=== PATIENT | female | born 1985 | race Caucasian/White ===

== ENCOUNTER 2017-02-03 11:31 | Emergency (ER) | payer OTHER ==
[2017-02-03 11:45] VITALS: BMI 23.8
[2017-02-03 11:48] VITALS: O2SAT 100
[2017-02-03] MEDS ORDERED: Sodium Chloride 0.9% 1,000 ML IV ONE (12:16)
--- NOTE | 2017-02-03 12:25 | C.PDOC ---
History Of Present Illness 31 y/o female presents to the ED c/o right side abdominal pain for a week. The patient had a termination of four weeks ago. The patient denies headaches, dizziness, fever, chills, nausea, vomiting, and diarrhea. Time Seen by Provider: 02/03/17 12:08 Chief Complaint (Nursing): Abdominal Pain History Per: Patient Onset/Duration Of Symptoms: Days Current Symptoms Are (Timing): Still Present Location Of Pain/Discomfort: RLQ Radiation Of Pain To:: Back Abnormal Vaginal Bleeding: No Past Medical History Reviewed: Historical Data, Nursing Documentation, Vital Signs Vital Signs: Last Vital Signs Temp 97.8 F 02/03/17 15:35 Pulse 60 02/03/17 15:35 Resp 18 02/03/17 15:35 BP 97/61 L 02/03/17 15:35 Pulse Ox 100 02/03/17 16:06 - Medical History PMH: No Chronic Diseases Surgical History: No Surg Hx Family History: States: Unknown Family Hx - Social History Hx Alcohol Use: No Hx Substance Use: No - Immunization History Hx Tetanus Toxoid Vaccination: No Hx Influenza Vaccination: No Hx Pneumococcal Vaccination: No Review Of Systems Except As Marked, All Systems Reviewed And Found Negative. Constitutional: Negative for: Fever, Chills Cardiovascular: Negative for: Chest Pain Respiratory: Negative for: Cough, Shortness of Breath Gastrointestinal: Negative for: Nausea, Vomiting Skin: Negative for: Rash Physical Exam - Physical Exam Appears: Non-toxic Skin: Warm, Dry Head: Atraumatic, Normacephalic Oral Mucosa: Moist Neck: Supple Chest: Symmetrical Cardiovascular: Rhythm Regular Respiratory: Normal Breath Sounds, No Rales, No Rhonchi, No Wheezing Gastrointestinal/Abdominal: Soft, Tenderness (right lower quadrant ) Extremity: Normal ROM, Capillary Refill (<2sec.) Neurological/Psych: Oriented x3, Normal Speech, Normal Cognition Gait: Steady ED Course And Treatment - Laboratory Results Result Diagrams: 02/03/17 12:40 02/03/17 12:40 Lab Interpretation: Normal Urine POC: Negative O2 Sat by Pulse Oximetry: 100 (RA) Pulse Ox Interpretation: Normal - CT Scan/US No standard instances Other Rad Studies (CT/US): Read By Radiologist, Radiology Report Reviewed CT/US Interpretation: Findings: Uterus: 8.5 x 4.9 x 6.0 centimeters. Retroverted. Heterogeneous echotexture. Endometrium measures 2.9 millimeters, within normal limits. No free fluid in the pelvic cul-de-sac. Right ovary: 3.9 x 1.8 x 2.6 centimeters. Normal flow. Left ovary: 3.1 x 1.6 x 2.0 centimeters. Normal flow. Impression: Unremarkable sonographic evaluation of the pelvis. FINDINGS: LOWER THORAX: 4 millimeter pulmonary nodule within the right middle lobe anteriorly. Mild dependent atelectasis. LIVER: Unremarkable. No gross lesion or ductal dilatation. GALLBLADDER AND BILE DUCTS : Unremarkable. PANCREAS: Unremarkable. No gross lesion or ductal dilatation. SPLEEN: Unremarkable. ADRENALS: Unremarkable. No mass. KIDNEYS AND URETERS: Unremarkable. No hydronephrosis. No solid mass. VASCULATURE: Unremarkable. No aortic aneurysm. BOWEL: Limited evaluation of the bowel without oral or intravenous contrast. Unremarkable. No obstruction. No gross mural thickening. Fecal retention in the colon. APPENDIX: Unremarkable. Normal appendix. PERITONEUM: Unremarkable. No free fluid. No free air. LYMPH NODES: Few shotty inguinal and para-aortic lymph nodes. Few shotty mesenteric lymph nodes. BLADDER: Unremarkable. REPRODUCTIVE: Unremarkable. BONES: Degenerative changes in the spine. Sclerosis at the bilateral SI joints. Small posterior disc osteophyte complex at the L5-S1 level. OTHER FINDINGS: None. IMPRESSION: Negative acute abdomen and pelvis. 4 millimeter pulmonary nodule within the right middle lobe anteriorly. Mild dependent atelectasis. Additional findings as above. Progress Note: The patient was administered Saline lock, 3ml NS Flush , PRN stat and Sodium chloride 0.9% 1,000ml IV 1,000mls/hr. The patient received UA, Blood Work, and Transvaginal ultrasound. The patient is resting comfortably. Upon reassessment, the patient is afebrile and PO tolerant. Reassessment Condition: Improved Medical Decision Making Medical Decision Making: Plan: Transvaginal Ultrasound Disposition Counseled Patient/Family Regarding: Studies Performed, Diagnosis, Need For Followup, Rx Given - Disposition [facility] Disposition: HOME/ ROUTINE Disposition Time: 15:45 Condition: STABLE Prescriptions: Naproxen [Naprosyn] 1 tab PO BID PRN #25 tab PRN Reason: Pain Instructions: Abdominal Pain (ED) Forms: [employer] (Martiniquais) - POA Present On Arrival: None - Clinical Impression Clinical Impression: Abdominal pain - PA / LATHE SPOTTER / Resident Statement MD/DO has reviewed & agrees with the documentation as recorded. MD/DO has examined the patient and agrees with the treatment plan. - Scribe Statement The provider has reviewed the documentation as recorded by the Scribsandie David All medical record entries made by the Ivánibsandie were at my direction and personally dictated by me. I have reviewed the chart and agree that the record accurately reflects my personal performance of the history, physical exam, medical decision making, and the department course for this patient. I have also personally directed, reviewed, and agree with the discharge instructions and disposition.
[2017-02-03 12:45] LABS: BASO # 0.1 K/uL (0.0-0.2); BASO % 1.2 % (0.0-2.0); EOS # 0.3 K/uL (0.0-0.7); EOS % 4.1 % (0.0-4.0); HEMATOCRIT 38.6 % (34.0-47.0); LYMPH # 1.9 K/uL (1.0-4.3); LYMPH % 26.7 % (20.0-40.0); MEAN CELL VOLUME 88.8 fL (81.0-99.0); MEAN CORPUSCULAR HEMOGLOBIN 30.3 pg (27.0-31.0); MEAN CORPUSCULAR HGB CONC 34.2 g/dL (33.0-37.0); MONO # 0.5 K/uL (0.0-0.8); MONO % 7.5 % (0.0-10.0); RED CELL DISTRIBUTION WIDTH 12.8 % (11.5-14.5); WHITE BLOOD COUNT 7.2 K/uL (4.8-10.8)
[2017-02-03 12:54] LABS: RBC URINE 2 /hpf (0-3); URINE BACTERIA RARE (<OCC); URINE BILIRUBIN NEGATIVE (NEGATIVE); URINE BLOOD 2+ (NEGATIVE); URINE COLOR Straw (YELLOW); URINE GLUCOSE (UA) NORMAL (Normal); URINE KETONE NEGATIVE (NEGATIVE); URINE LEUKOCYTE ESTERASE TRACE Leu/uL (Negative); URINE PROTEIN NEGATIVE (NEGATIVE); URINE UROBILINOGEN NORMAL mg/dL (0.2-1.0); WBC URINE 1 /hpf (0-5)
[2017-02-03 12:55] LABS: CHLORIDE 100 mmol/L (98-107); SODIUM 135 mmol/L (132-148)
[2017-02-03 12:56] LABS: POTASSIUM 4.3 mmol/L (3.6-5.2)
[2017-02-03 12:58] LABS: ALB/GLOB RATIO 1.3 (1.0-2.1); ALKALINE PHOSPHATASE 51 U/L (38-126); ALT/SGPT 23 U/L (9-52); AST/SGOT 31 U/L (14-36); BLOOD UREA NITROGEN 13 mg/dL (7-17); CALCIUM 9.2 mg/dl (8.6-10.4); CARBON DIOXIDE 24 mmol/L (22-30); GFR AFRICAN-AMERICAN > 60; GLUCOSE,RANDOM 91 mg/dL (65-105); TOTAL PROTEIN 7.7 g/dL (6.3-8.3)
--- NOTE | 2017-02-03 13:41 | US ---
Pelvic ultrasound History: Vaginal bleeding. Comparison: None available. Technique: Real-time sonography was performed through the pelvis utilizing transabdominal and transvaginal techniques. Findings: Uterus: 8.5 x 4.9 x 6.0 centimeters. Retroverted. Heterogeneous echotexture. Endometrium measures 2.9 millimeters, within normal limits. No free fluid in the pelvic cul-de-sac. Right ovary: 3.9 x 1.8 x 2.6 centimeters. Normal flow. Left ovary: 3.1 x 1.6 x 2.0 centimeters. Normal flow. Impression: Unremarkable sonographic evaluation of the pelvis.
--- NOTE | 2017-02-03 15:29 | CT ---
PROCEDURE: CT Abdomen and Pelvis without intravenous contrast HISTORY: Abdominal pain COMPARISON: None. TECHNIQUE: Multiple contiguous axial images were performed through the abdomen and pelvis without the use of intravenous contrast. Subsequently, sagittal and coronal reformatted images were obtained. Radiation dose: Total exam DLP = two hundred sixty-nine mGy-cm. This CT exam was performed using one or more of the following dose reduction techniques: Automated exposure control, adjustment of the mA and/or kV according to patient size, and/or use of iterative reconstruction technique. FINDINGS: LOWER THORAX: 4 millimeter pulmonary nodule within the right middle lobe anteriorly. Mild dependent atelectasis. LIVER: Unremarkable. No gross lesion or ductal dilatation. GALLBLADDER AND BILE DUCTS: Unremarkable. PANCREAS: Unremarkable. No gross lesion or ductal dilatation. SPLEEN: Unremarkable. ADRENALS: Unremarkable. No mass. KIDNEYS AND URETERS: Unremarkable. No hydronephrosis. No solid mass. VASCULATURE: Unremarkable. No aortic aneurysm. BOWEL: Limited evaluation of the bowel without oral or intravenous contrast. Unremarkable. No obstruction. No gross mural thickening. Fecal retention in the colon. APPENDIX: Unremarkable. Normal appendix. PERITONEUM: Unremarkable. No free fluid. No free air. LYMPH NODES: Few shotty inguinal and para-aortic lymph nodes. Few shotty mesenteric lymph nodes. BLADDER: Unremarkable. REPRODUCTIVE: Unremarkable. BONES: Degenerative changes in the spine. Sclerosis at the bilateral SI joints. Small posterior disc osteophyte complex at the L5-S1 level. OTHER FINDINGS: None. IMPRESSION: Negative acute abdomen and pelvis. 4 millimeter pulmonary nodule within the right middle lobe anteriorly. Mild dependent atelectasis. Additional findings as above.
[2017-02-03 15:36] VITALS: PULSE 60
[2017-02-03 16:11] VITALS: BP 95/64; RESP 20; TEMP 98.2
== END 2017-02-03 16:11 | disposition home or self-care (01) ==
LOC: C.ER 11:31
DX: R10.9 Unspecified abdominal pain (principal)
CPT/HCPCS: 74176; 76830; 76856; 80053; 81001; 84702; 84703; 85025; 96361; 96374; 96375; 99284; J1885; J2270; J7040

== ENCOUNTER 2017-11-20 08:45 | Emergency (ER) | payer OTHER ==
[2017-11-20 09:06] VITALS: BMI 22.8
--- NOTE | 2017-11-20 09:26 | C.PDOC ---
History Of Present Illness 32 year old female presents to the ED complaining of new onset left pelvic pain that began this morning. Pain is localized and constant. She reports she has an irregular menses. LNMP: 10/16/17. She denies any other symptoms. Denies prior history of ovarian cyst. Time Seen by Provider: 11/20/17 09:16 Chief Complaint (Nursing): Abdominal Pain History Per: Patient History/Exam Limitations: no limitations Onset/Duration Of Symptoms: Hrs Current Symptoms Are (Timing): Still Present Quality Of Discomfort: "Pain" Past Medical History Reviewed: Historical Data, Nursing Documentation, Vital Signs Vital Signs: Last Vital Signs Temp 97.7 F 11/20/17 11:38 Pulse 66 11/20/17 11:38 Resp 17 11/20/17 11:38 BP 108/72 11/20/17 11:38 Pulse Ox 98 11/20/17 12:31 - Medical History PMH: No Chronic Diseases Surgical History: No Surg Hx - [facility] INJECT/INFUSE NEC (01/17/14) Family History: States: No Known Family Hx - Social History Hx Alcohol Use: No Hx Substance Use: No - Immunization History Hx Tetanus Toxoid Vaccination: No Hx Influenza Vaccination: No Hx Pneumococcal Vaccination: No Review Of Systems Except As Marked, All Systems Reviewed And Found Negative. Constitutional: Negative for: Fever, Chills Gastrointestinal: Negative for: Nausea, Vomiting, Diarrhea Genitourinary: Positive for: Pelvic Pain (Left ). Negative for: Dysuria, Frequency, Hematuria Physical Exam - Physical Exam Appears: Non-toxic, Other (Mild discomfort ) Skin: Warm, Dry Head: Atraumatic, Normacephalic Eye(s): bilateral: Normal Inspection Nose: Normal Oral Mucosa: Moist Neck: Supple Chest: Symmetrical Cardiovascular: Rhythm Regular Respiratory: Normal Breath Sounds, No Rales, No Rhonchi, No Wheezing Gastrointestinal/Abdominal: Soft, No Tenderness Pelvic: Other (Tenderness to left pelvic region ) Extremity: Normal ROM Neurological/Psych: Oriented x3, Normal Speech Gait: Steady ED Course And Treatment - Laboratory Results Result Diagrams: 11/20/17 09:43 11/20/17 09:43 O2 Sat by Pulse Oximetry: 98 (RA) Pulse Ox Interpretation: Normal Progress - Re-Evaluation Re-evaluation Note: 11/20/17 12:31 ER POC NEG PREG. D/W DR DR HERBERT: STATES CONTRARY TO DICTATED REPORT, PT DOES NOT HAVE INTRAUTERINE GESTATIONAL SAC. STATES IS DICTATION ERROR. - Data Reviewed Data Reviewed: Lab, Diagnostic imaging, Old records Disposition Counseled Patient/Family Regarding: Studies Performed, Diagnosis, Need For Followup, Rx Given - Disposition Referrals: [facility] [Outside] [facility] [Outside] Disposition: HOME/ ROUTINE Disposition Time: 12:43 Condition: IMPROVED Prescriptions: Acetaminophen with Codeine [Tylenol with Codeine No. 3 300 mg-30 mg] 1 tab PO Q6 PRN #12 tab PRN Reason: Pain, Moderate (4-7) Ibuprofen [Motrin] 600 mg PO Q6 #30 tab Instructions: Ovarian Cyst (DC) Forms: [facility] (Malian), Work Excuse Print Language: ROMANSH - Clinical Impression Clinical Impression: Pelvic pain, Ruptured cyst of ovary
[2017-11-20 09:48] LABS: BASO # 0.1 K/uL (0.0-0.2); EOS # 0.2 K/uL (0.0-0.7); EOS % 2.8 % (0.0-4.0); HEMOGLOBIN 12.7 g/dL (11.0-16.0); LYMPH # 1.5 K/uL (1.0-4.3); LYMPH % 25.5 % (20.0-40.0); MEAN CELL VOLUME 87.8 fL (81.0-99.0); MEAN CORPUSCULAR HEMOGLOBIN 30.1 pg (27.0-31.0); MEAN CORPUSCULAR HGB CONC 34.2 g/dL (33.0-37.0); MEAN PLATELET VOLUME 7.4 fL (7.2-11.7); MONO # 0.4 K/uL (0.0-0.8); MONO % 6.3 % (0.0-10.0); NEUT # 3.7 K/uL (1.8-7.0); NEUT % 64.4 % (50.0-75.0); RBC 4.23 Mil/uL (3.80-5.20); RED CELL DISTRIBUTION WIDTH 13.4 % (11.5-14.5); WHITE BLOOD COUNT 5.7 K/uL (4.8-10.8)
[2017-11-20 09:52] LABS: SQUAMOUS EPITHIAL 6 /hpf (0-5); URINE BACTERIA RARE (<OCC); URINE BILIRUBIN NEGATIVE (NEGATIVE); URINE BLOOD 2+ (NEGATIVE); URINE CLARITY Clear (Clear); URINE COLOR Yellow (YELLOW); URINE GLUCOSE (UA) NORMAL (Normal); URINE LEUKOCYTE ESTERASE NEG Leu/uL (Negative); URINE PROTEIN NEGATIVE (NEGATIVE); URINE UROBILINOGEN NORMAL mg/dL (0.2-1.0)
[2017-11-20 10:11] LABS: ALB/GLOB RATIO 1.4 (1.0-2.1); ALBUMIN 4.3 g/dL (3.5-5.0); ALT/SGPT 33 U/L (9-52); AST/SGOT 41 U/L (14-36); BLOOD UREA NITROGEN 13 mg/dL (7-17); CALCIUM 9.5 mg/dl (8.6-10.4); GFR AFRICAN-AMERICAN > 60; GFR NON-AFRICAN AMERICAN > 60
[2017-11-20 11:39] VITALS: PULSE 66
[2017-11-20] MEDS ORDERED: Oxycodone/Acetaminophen 5/325 mg Tab PO STA (11:52)
[2017-11-20] MEDS ORDERED: Oxycodone/Acetaminophen 5/325 mg Tab ONE (11:52)
--- NOTE | 2017-11-20 12:01 | US ---
Date of service: 11/20/2017 PROCEDURE: HISTORY: L PELVIC PAIN LMP unknown. Urine HCG levels not the available to me at this time COMPARISON: None TECHNIQUE: Trans abdominal and transvaginal FINDINGS: Retroverted uterus. 7.6 x 3.6 x 4.6 cm. No uterine masses seen. No intrauterine fluid collections noted. This typically no intrauterine gestational sac appreciated. Endometrium unremarkable at 6 mm. A sub cm nabothian cyst is noted at the cervix Moderate amount of complex cul-de-sac fluid present. Clinical correlation is essential determine the possibility of a hemoperitoneum associated with a ectopic. Right ovary: 3.2 x 2.3 x 2.5 cm. Normal Doppler flow. Unremarkable appearing right ovary. Left ovary 3.5 x 2.7 x 3.4 cm. Doppler flow present. Irregularly shaped cyst-possibly recently ruptured corpus luteal cyst measuring 1.6 x 0.8 x 1.0 cm is noted. An ectopic is not excluded. No viable embryonic pole identified. IMPRESSION: The findings are indeterminate in terms of ruling in a ruling out an ectopic . Correlation is essential in terms of the beta HCG levels. Intrauterine gestational sac identified. Moderate amount of complex fluid in the cul-de-sac - a hemoperitoneum is compatible with this complex fluid etiology of which is indeterminate at this time with the available information Possible ruptured left corpus luteal cyst. An ectopic its not excluded and clinical correlation and follow-up is essential. Comments: Case marked PA for review
[2017-11-20 13:16] VITALS: BP 131/73; RESP 16; TEMP 97.8; O2SAT 100
== END 2017-11-20 13:22 | disposition home or self-care (01) ==
LOC: C.ER 08:45
DX: R10.2 Pelvic and perineal pain (principal); N83.202 Unspecified ovarian cyst, left side
CPT/HCPCS: 76830; 76856; 80053; 81001; 85025; 96374; 99285; J1885